=== PATIENT | female | born 1975 | race Caucasian/White ===

== ENCOUNTER 2023-03-18 13:18 | Emergency (ER) | payer MEDICAID, SELFPAY ==
[2023-03-18 13:24] VITALS: BP 120/63; PULSE 73; RESP 20; TEMP 37.1; O2SAT 97
== END 2023-03-18 14:05 | disposition left against medical advice (07) ==
LOC: ER 13:41
DX: Z53.21 Procedure and treatment not carried out due to patient leaving prior to being seen by health care provider (principal)